=== PATIENT | female | born 1955 | race Caucasian/White ===

== ENCOUNTER 2016-03-11 07:45 | Day surgery (SDC) | payer OTHER, BC ==
[2016-03-10 14:02] VITALS: BMI 31.1
[2016-03-11 08:09] VITALS: TEMP 97.6
[2016-03-11] MEDS ORDERED: PROPOFOL 20 ML ONE ×3 (08:51)
[2016-03-11 10:42] VITALS: BP 142/77; PULSE 73
--- NOTE | 2016-03-12 12:27 | PATH ---
Surgical Pathology Report Patient Name: CYN GUTIERREZ [facility] Rec. #: [id number] /Age/Gender: 1955 (Age: 61) / F Account: [id number] Location: [facility]-ENDOSCOPY Taken: 03/11/2016 Received: 03/11/2016 Reported: 03/12/2016 Physicians: Mark Sosa D.O. Specimen(s) Received A: BX RIGHT COLON B: BX TRANSVERSE COLON C: BX DESCENDING COLON D: BX SIGMOID COLON E: BX RECTAL POLYP Clinical History Diarrhea Colon polyps Final Diagnosis A. COLON, RIGHT, BIOPSY: COLONIC MUCOSA WITH REACTIVE LYMPHOID AGGREGATE. NO EVIDENCE OF ACTIVE INFLAMMATION, SIGINIFICANT ARCHITECTURAL DISTORTION, GRANULOMATA OR DYSPLASIA; NO EVIDENCE OF MICROSCOPIC COLITIS. B. COLON, TRANSVERSE, BIOPSY: COLONIC MUCOSA WITH REACTIVE LYMPHOID AGGREGATE. NO EVIDENCE OF ACTIVE INFLAMMATION, SIGINIFICANT ARCHITECTURAL DISTORTION, GRANULOMATA OR DYSPLASIA; NO EVIDENCE OF MICROSCOPIC COLITIS. C. COLON, DESCENDING, BIOPSY: COLONIC MUCOSA WITH REACTIVE LYMPHOID AGGREGATE. NO EVIDENCE OF ACTIVE INFLAMMATION, SIGINIFICANT ARCHITECTURAL DISTORTION, GRANULOMATA OR DYSPLASIA; NO EVIDENCE OF MICROSCOPIC COLITIS. D. COLON, SIGMOID, BIOPSY: COLONIC MUCOSA WITH REACTIVE LYMPHOID AGGREGATE. NO EVIDENCE OF ACTIVE INFLAMMATION, SIGINIFICANT ARCHITECTURAL DISTORTION, GRANULOMATA OR DYSPLASIA; NO EVIDENCE OF MICROSCOPIC COLITIS. E. RECTUM, POLYP, BIOPSY: FRAGMENTS OF HYPERPLASTIC POLYP. Electronically Signed Rodger Irwin M.D. Gross Description A. Received in formalin, labeled "biopsy right colon microscopic colitis" are 3 ortega, irregular portions of soft tissue averaging 0.2 cm in greatest dimension. The specimens are submitted in toto in one cassette. B. Received in formalin, labeled "biopsy transverse colon microscopic colitis" are 3 ortega, irregular portions of soft tissue averaging 0.3 cm in greatest dimension. The specimens are submitted in toto in one cassette. C. Received in formalin, labeled "biopsy descending colon microscopic colitis" are 3 ortega, irregular portions of soft tissue ranging from 0.2-0.5 cm in greatest dimension. The specimens are submitted in toto in one cassette. D. Received in formalin, labeled "biopsy sigmoid colon microscopic colitis" are 2 ortega, irregular portions of soft tissue averaging 0.5 cm in greatest dimension. The specimens are submitted in toto in one cassette. E. Received in formalin, labeled "biopsy rectal polyp" are 3 ortega, irregular portions of soft tissue ranging from 0.2-0.4 cm in greatest dimension. The specimens are submitted in toto in one cassette. 03/11/201603/11/2016
== END 2016-03-11 10:35 | disposition home or self-care (01) ==
LOC: JASU-ENDO 07:45
PROVIDERS: ATTEND Internal Medicine Gastroenterology
PROC: 0DBE8ZX Excision of Large Intestine, Via Natural or Artificial Opening Endoscopic, Diagnostic (ICD-10-PCS; 2016-03-11)
PROC: 0DBP8ZX Excision of Rectum, Via Natural or Artificial Opening Endoscopic, Diagnostic (ICD-10-PCS; principal; 2016-03-11 09:00)
DX: K62.1 Rectal polyp (principal); K64.8 Other hemorrhoids; R19.7 Diarrhea, unspecified
CPT/HCPCS: 88305-TC

== ENCOUNTER 2016-04-08 07:31 | Day surgery (SDC) | payer OTHER, BC ==
[2016-04-07 13:21] VITALS: BMI 30.4
[2016-04-08] MEDS ORDERED: PROPOFOL 20 ML ONE ×3 (09:19)
[2016-04-08] MEDS ORDERED: LIDOCAINE HCL/PF 1% SDV 5ML VIAL ONE (09:19)
[2016-04-08 09:20] VITALS: TEMP 97.7
[2016-04-08 10:26] VITALS: BP 123/72; PULSE 60
[2016-04-08 10:33] LABS: ALBUMIN 3.5 g/dl (3.4-5.0); ALK PHOS 74 U/L (45-117); BILIRUBIN,TOTAL 0.2 mg/dL (0.2-1.0); SGOT/AST 24 U/L (15-37); SGPT/ALT 40 U/L (12-78); TOT PROT 6.2 g/dl (6.4-8.2)
[2016-04-08 10:46] LABS: BILIRUBIN,DIRECT < 0.1 mg/dL (0.0-0.2)
[2016-04-09 06:06] LABS: SERUM IRON 65 ug/dL (27-159); TOTAL IRON BINDING CAPACITY 257 ug/dL (250-450); UIBC 192 ug/dL (131-425)
--- NOTE | 2016-04-09 13:52 | PATH ---
Surgical Pathology Report Patient Name: CYN GUTIERREZ [facility] Rec. #: [id number] /Age/Gender: 1955 (Age: 61) / F Account: [id number] Location: U-ENDOSCOPY Taken: 04/08/2016 Received: 04/08/2016 Reported: 04/09/2016 Physicians: Mark Sosa D.O. Specimen(s) Received A: BX BODY & ANTRUM B: BX GE JUNCTION Clinical History GERD Gastritis, retained food Final Diagnosis A. STOMACH, BODY AND ANTRUM, BIOPSY: GASTRIC ANTRAL AND OXYNTIC MUCOSA WITH MODERATE CHRONIC GASTRITIS. IMMUNOSTAIN FOR H. PYLORI IS NEGATIVE FOR ORGANISMS. B. GE JUNCTION, BIOPSY: SQUAMOCOLUMNAR JUNCTIONAL MUCOSA WITH CHRONIC INFLAMMATION, REFLUX TYPE CHANGES AND FOCAL SURFACE EROSION AND HYPERPLASTIC CHANGE. NO INTESTINAL METAPLASIA (PETERS'S ESOPHAGUS) OR DYSPLASIA IDENTIFIED. Electronically Signed Rodger Irwin M.D. Gross Description A. Received in formalin, labeled "biopsy body and antrum" are 2 ortega, irregular portions of soft tissue measuring 0.1 and 0.5 cm in greatest dimension. The specimens are submitted in toto in one cassette. B. Received in formalin, labeled "biopsy GE junction" are 3 ortega, irregular portions of soft tissue ranging from 0.1-0.4 cm in greatest dimension. The specimens are submitted in toto in one cassette. 04/08/201604/08/2016
[2016-04-10 00:08] LABS: HEP B SURFACE AB Non Reactive (.)
[2016-04-11 10:15] LABS: ALPHA 2 MACROGLOBULINS,QN 155 mg/dL (110-276); BILIRUBIN TOTAL 0.1 mg/dL (0.0-1.2); GGT= 46 IU/L (0-60); GLUCOSE SERUM 104 mg/dL (65-99); HAPTOGLOBIN= 82 mg/dL (34-200); HEIGHT 66 Inches (.); TRIGLYCERIDES= 208 mg/dL (0-149)
== END 2016-04-08 10:20 | disposition home or self-care (01) ==
LOC: JASU-ENDO 07:31
PROVIDERS: ATTEND Internal Medicine Gastroenterology
PROC: 0DB68ZX Excision of Stomach, Via Natural or Artificial Opening Endoscopic, Diagnostic (ICD-10-PCS; principal; 2016-04-08 09:00)
DX: K21.9 Gastro-esophageal reflux disease without esophagitis (principal); K29.50 Unspecified chronic gastritis without bleeding
CPT/HCPCS: 36415; 80076; 82103; 82104; 82172; 82247; 82390; 82465; 82728; 82947; 82977; 83010; 83540; 83550; 83883; 84450; 84460; 84478; 86704; 86706; 86708; 87340; 88305-TC; 88342-TC

== ENCOUNTER 2018-07-20 19:28 | Emergency (ER) | payer OTHER, BC ==
[2018-07-20 19:39] VITALS: BP 128/62; PULSE 71; TEMP 98.1; BMI 27.2
[2018-07-20] MEDS ORDERED: FAMOTIDINE 20 MG/50 ML IVPB 20 MG/50 ML MG IVPB ONE ×2 (19:46→19:51)
--- NOTE | 2018-07-21 06:06 | PDOC ---
Documentation entered by Silvana Houston SCRIBE, acting as scribe for Nakia Moya MD. Nakia Moya MD: This documentation has been prepared by the Rosemarie ziegler Mackenzie, SCRIBE, under my direction and personally reviewed by me in its entirety. I confirm that the documentation accurately reflects all work , treatment, procedures, and medical decision making performed by me. History of Present Illness - General Chief Complaint: Allergic Reaction Stated Complaint: SWELLING AROUND BOTH EYES Time Seen by Provider: 07/20/18 19:29 History Source: Patient, Spouse Exam Limitations: No Limitations - History of Present Illness Initial Comments: 07/20/18 20:48 The patient is a 63 year old female accompanied with her , with a significant past medical history of IBS, Dyan Ramirez, acid reflux, and hyperlipidemia who presents to the emergency department for evaluation of facial edema. Patient reports waking up with facial and periorbital edema associated with redness and itchiness to face, eyes, neck, and upper chest. She denies feeling any symptoms last night. Patient reports taking liquid benadryl this morning at 11am and 12pm with mild alleviation to her symptoms. Patient reports going to an Urgent Care this morning where she received a nebulizer treatment, and was prompted to visit the emergency department for further evaluation. Patient states she had no shortness of breath this morning. She denies use of new detergent, foods, over the counter medication, new medication , or recent travel. Patient states she is unsure of how her symptoms started. Per at bedside, patient was removing weeds in yard last night, but notes there was no poison jomar present. The patient denies tongue swelling, difficulty swallowing, itchiness in throat, shortness of breath, chest pain, headache and dizziness. Denies fever, chills, nausea, vomit, diarrhea and constipation. Denies dysuria, frequency, urgency and hematuria. Allergies: Penicillins, Steroids. Past surgical history: Cholecystectomy, laminectomy Social history: No reported alcohol or drug use. PCP: Lito Corey Past History - Past Medical History Allergies/Adverse Reactions: Allergies Allergy/AdvReac Type Severity Reaction Status Date / Time Penicillins Allergy Mild Verified 07/20/18 19:30 STEROIDS AdvReac Uncoded 07/20/18 19:30 Home Medications: Ambulatory Orders Alprazolam [Xanax] 0.25 mg PO PRN 07/20/18 Calamine/Zinc Oxide [Calamine Lotion] 5 ml TP TID #177 ml 07/20/18 Clonazepam [Klonopin] 2 mg PO HS 07/20/18 Lubiprostone [Amitiza] 16 mcg PO DAILY 07/20/18 Trazodone HCl 300 mg PO HS 07/20/18 Anemia: No COPD: No GI Disorders: Yes (acid reflux, IBS) Hypercholesterolemia: Yes Liver Disease: (FATTY LIVER) Psychiatric Problems: Yes (anxiety, depression, panic attacks) - Surgical History Abdominal Surgery: Yes ("TUMMY TUC") Cholecystectomy: Yes Neurologic Surgery: Yes (laminectomy x 2) Orthopedic Surgery: Yes (CERVICAL, SPINAL SX; PLATES AND SCREWS) - Immunization History Td Vaccination: Yes - Suicide/Smoking/Psychosocial Hx Smoking Status: No Smoking History: Never smoked Have you smoked in the past 12 months: No Number of Cigarettes Smoked Daily: 0 Information on smoking cessation initiated: No Hx Alcohol Use: No Drug/Substance Use Hx: No Substance Use Type: None Hx Substance Use Treatment: No Review of Systems - Review of Systems Able to Perform ROS?: Yes Comments:: 07/20/18 20:49 GENERAL/CONSTITUTIONAL: No fever or chills. No weakness. HEAD, EYES, EARS, NOSE AND THROAT: No change in vision. No ear pain or discharge. No sore throat. CARDIOVASCULAR: No chest pain or shortness of breath. RESPIRATORY: No cough, wheezing, or hemoptysis. GASTROINTESTINAL: No nausea, vomiting, diarrhea or constipation. GENITOURINARY: No dysuria, frequency, or change in urination. MUSCULOSKELETAL: No joint or muscle swelling or pain. No neck or back pain. SKIN: (+)periorbital swelling. (+)rash to face, neck, and upper chest. NEUROLOGIC: No headache, vertigo, loss of consciousness, or change in strength/ sensation. ENDOCRINE: No increased thirst. No abnormal weight change. HEMATOLOGIC/LYMPHATIC: No anemia, easy bleeding, or history of blood clots. ALLERGIC/IMMUNOLOGIC: No hives or skin allergy. *Physical Exam - Vital Signs Last Vital Signs Temp Pulse Resp BP Pulse Ox 98.1 F 71 16 128/62 100 07/20/18 19:34 07/20/18 19:34 07/20/18 19:34 07/20/18 19:34 07/20/18 19:34 - Physical Exam Comments: 07/20/18 20:49 GENERAL: Awake, alert, and fully oriented, in no acute distress HEENT: (+)marked bilateral periorbital edema with mild erythema on the skin of the upper face, bilateral cheeks, anterior neck, and proximal anterior chest. No lip, tongue, or uvular edema. No signs of trauma. PERRLA, EOMI, sclera anicteric, conjunctiva clear. Auricles normal inspection, hearing grossly normal , nares patent, oropharynx clear without exudates. Moist mucosa. NECK: No stridor. Normal ROM, supple, no JVD, or masses BACK: Well healed 4cm midline incision in lumbar region. Otherwise unremarkable. LUNGS: Breath sounds equal, clear to auscultation bilaterally. No wheezes, and no crackles HEART: Regular rate and rhythm, normal S1 and S2, no murmurs, rubs or gallops EXTREMITIES: Normal range of motion, no edema. No clubbing or cyanosis. No cords, erythema, or tenderness NEUROLOGICAL: Cranial nerves II through XII grossly intact. Normal speech, normal gait SKIN: Skin: No papular or vesicular rash noted anywhere on the body. Warm, Dry, normal turgor. ED Treatment Course - Medications Given in the ED: ED Medications Discontinued Medications Generic Name Dose Route Start Last Admin Trade Name Freq PRN Reason Stop Dose Admin Diphenhydramine HCl 50 mg 07/20/18 19:46 07/20/18 19:50 Benadryl Injection - IVPB 07/20/18 19:47 50 mg ONCE ONE Administration Famotidine/Sodium Chloride 20 mg in 50 mls @ 100 mls/hr 07/20/18 19:46 19:50 Pepcid 20 Mg Premixed Ivpb - IVPB 07/20/18 20:15 100 mls/hr ONCE ONE Administration Medical Decision Making - Medical Decision Making As noted above, this 63-year-old woman presents with a one-day history of bilateral periorbital edema; she presented to urgent care earlier today and reports here because of persistent swelling around her eyes. She states that she has itching and burning in the swollen area of her upper face and also in the anterior neck region where she has some erythema. She strongly denies any difficulty swallowing or breathing; she has had no lip/tongue edema and has no sensation of foreign body in her throat. No history of rash (either erythema/ maculopapular/vesicular) anywhere else on her body. Of note, the patient was weeding her garden the day prior to onset of current periorbital edema/erythema The patient states that she has had an anaphylactic reaction to poison jomar in the past. She also has severe side effects to prescribed steroids: She becomes extremely depressed and angry, almost to the point of violence. She states she attempted to commit suicide last time she was prescribed prednisone. Exam as noted with marked bilateral periorbital edema with faint erythema of swollen areas. No evidence of fluctuance or abscess in any area. The actual orbit is normal without conjunctival erythema/corneal edema or other ophthalmologic abnormality. Review of the patient's medical record reveals similar right periorbital edema after gardening in May,. At that time, patient was treated with antihistamines only , with apparent resolution of symptoms. Because of lack of signs of upper airway/neck/lung inflammation or edema and no other rash noted, systemic ALLERGIC reaction or anaphylaxis is highly unlikely here. However, because she has facial edema and did not take any diphenhydramine for 6-7 hours prior to presentation, she was given 50 mg Benadryl IV as well as 20 mg of Pepcid IV. Patient was observed for an hour after administration of the above medications. She had mild decrease in the edema around her eyes with no development of tongue/lip edema/stridor/wheezing. It was explained to the patient that presentation is more consistent with localized contact dermatitis, either ALLERGIC or irritant. Since she was weeding in her garden the day prior to presentation, contact with some plant or chemical allergen may be responsible. In any case, steroids cannot be used. Therefore, antihistamines (including H2 stuart) and local agents (calamine lotion/cool compresses) will be advised until she can be seen by program instructor for possible use of immunomodulators such as tacrolimus. Patient's has been seen by Dr. Clark of [facility] dermatology staff. Dr. Patricia Andrew's referral information will also be given to the patient. The patient should call tomorrow a.m. for follow-up by one of these program instructor. Meanwhile, if the patient has development of any lower facial edema, symptoms of difficulty breathing or swallowing, she should return to the ER immediately *DC/Admit/Observation/Transfer Diagnosis at time of Disposition: Contact dermatitis of eyelids of both eyes - Discharge Dispostion Disposition: HOME Condition at time of disposition: Stable - Prescriptions Prescriptions: Calamine/Zinc Oxide [Calamine Lotion] 5 ml TP TID #177 ml - Referrals Referrals: Patricia Andrew [Staff Physician] - - Patient Instructions Printed Discharge Instructions: Contact Dermatitis Additional Instructions: Elevate head on extra pillows at night; cool compresses to upper face Continue Benadryl as needed for itching/Zantac daily as discussed calamine lotion to rash 3 times daily Follow-up with your program instructor (Dr. Clark); call office in the morning If Dr. Clark is not available, follow-up with Dr. Andrew for dermatology evaluation - Post Discharge Activity
== END 2018-07-20 20:49 | disposition home or self-care (01) ==
LOC: FER 19:28
PROC: 3E033GC Introduction of Other Therapeutic Substance into Peripheral Vein, Percutaneous Approach (ICD-10-PCS; principal; 2018-07-20)
DX: K21.9 Gastro-esophageal reflux disease without esophagitis (principal); F41.8 Other specified anxiety disorders; F99 Mental disorder, not otherwise specified; E78.00 Pure hypercholesterolemia, unspecified; K76.0 Fatty (change of) liver, not elsewhere classified
CPT/HCPCS: 96365; 96375; 99281-25

== ENCOUNTER 2018-12-14 09:11 | Day surgery (SDC) | payer OTHER, BC ==
[2018-12-10 16:14] VITALS: BMI 26.4
[2018-12-14] MEDS ORDERED: PROPOFOL 20 ML ONE ×4 (11:14)
[2018-12-14] MEDS ORDERED: MIDAZOLAM HCL 2 MG/2 ML SINGLE DOSE VIAL ONE (11:15)
--- NOTE | 2018-12-14 11:55 | OP ---
Operative Note - Note: Operative Date: 12/14/18 Pre-Operative Diagnosis: Left renal calculus Operation: Left Lithotripsy Findings: Left 8 mm renal stone Post-Operative Diagnosis: Same as Pre-op Surgeon: Xander Lee MD. Anesthesia: General Specimens Removed: None
[2018-12-14] MEDS ORDERED: ELECTROLYTE-148 SOLN 1,000 ML IV SCH (12:00)
--- NOTE | 2018-12-14 13:00 | OP ---
DATE OF OPERATION: 12/14/2018 PREOPERATIVE DIAGNOSIS: Left renal calculus. POSTOPERATIVE DIAGNOSIS: Left renal calculus. PROCEDURE: Left lithotripsy. HISTORY: This is a very pleasant 63-year-old female who had actually bilateral flank pain and was found to have a left renal calculus. This was confirmed by prior imaging and by sonography as well as x-ray. Discussed treatment options. The patient elected to undergo the above-stated procedure. Risks, benefits of treatment, alternative treatment discussed in detail. All questions were answered. BRIEF OPERATIVE NOTE: The patient was brought into the operating suite, placed in supine position. A time-out was performed after identifying an 8-mm stone in the left kidney. Intravenous antibiotics were given. The patient was given sedation, and approximately 2500 shocks were delivered in electromagnetic fashion. Patient tolerated the procedure well and was brought to recovery room in stable and satisfactory condition. RICHMOND FERNANDEZ M.D. [id number]
[2018-12-14 13:17] VITALS: BP 124/60; PULSE 59; TEMP 97.5
== END 2018-12-14 13:12 | disposition home or self-care (01) ==
LOC: JASU-SURG 09:11
PROVIDERS: ATTEND Urology
PROC: 0TF4XZZ Fragmentation in Left Kidney Pelvis, External Approach (ICD-10-PCS; principal; 2018-12-14 11:00)
DX: N20.0 Calculus of kidney (principal)

== ENCOUNTER 2019-12-13 04:20 | Day surgery (SDC) | payer OTHER, BC ==
[2019-12-12 09:03] VITALS: BMI 26.6
[2019-12-13 08:43] VITALS: TEMP 97.5
[2019-12-13] MEDS ORDERED: ELECTROLYTE-148 SOLN 1,000 ML IV SCH (09:15)
[2019-12-13 10:09] VITALS: BP 110/70; PULSE 64
== END 2019-12-13 09:50 | disposition home or self-care (01) ==
LOC: JASU-SURG 04:20
PROVIDERS: ATTEND Urology
PROC: 0TF4XZZ Fragmentation in Left Kidney Pelvis, External Approach (ICD-10-PCS; principal; 2019-12-13 07:30)
DX: N20.0 Calculus of kidney (principal)

== ENCOUNTER 2020-03-13 05:23 | Day surgery (SDC) | payer OTHER, BC ==
[2020-03-08 15:58] VITALS: BMI 26.6
[2020-03-13] MEDS ORDERED: MIDAZOLAM HCL 2 MG/2 ML SINGLE DOSE VIAL ONE (11:58)
[2020-03-13] MEDS ORDERED: PROPOFOL 20 ML ONE (11:58)
[2020-03-13] MEDS ORDERED: SUCCINYLCHOLINE CHLORIDE 200 MG/10 ML SYRINGE ONE (11:58)
[2020-03-13] MEDS ORDERED: LIDOCAINE HCL/PF 2% SDV 5ML VIAL ONE (11:59)
[2020-03-13] MEDS ORDERED: GENTAMICIN SO4 80 MG/2 ML VIAL IVPB ONE (12:20)
[2020-03-13] MEDS ORDERED: GENTAMICIN SO4 80 MG/2 ML VIAL ONE (12:24)
[2020-03-13] MEDS ORDERED: oxyCODONE HCL 5 MG TABLET PO PRN (13:49)
[2020-03-13] MEDS ORDERED: ONDANSETRON 4 MG/2 ML VIAL IVPUSH PRN (13:49)
[2020-03-13] MEDS ORDERED: LACTATED RINGERS SOLUTION 1,000 ML IV SCH (14:00)
[2020-03-13] MEDS ORDERED: oxyCODONE HCL 5 MG TABLET ONE (15:24)
[2020-03-13] MEDS ORDERED: oxyCODONE HCL 5 MG TABLET PO ONE (15:25)
[2020-03-13] MEDS ORDERED: ONDANSETRON 4 MG/2 ML VIAL ONE (15:30)
[2020-03-13] MEDS ORDERED: ONDANSETRON 4 MG/2 ML VIAL IVPB ONE (15:39)
[2020-03-13 16:21] VITALS: BP 160/80; PULSE 70; TEMP 98.4
== END 2020-03-13 16:30 | disposition home or self-care (01) ==
LOC: JASU-SURG 05:23
PROVIDERS: ATTEND Urology
PROC: 0TF48ZZ Fragmentation in Left Kidney Pelvis, Via Natural or Artificial Opening Endoscopic (ICD-10-PCS; principal; 2020-03-13 11:00)
PROC: 0T778DZ Dilation of Left Ureter with Intraluminal Device, Via Natural or Artificial Opening Endoscopic (ICD-10-PCS; 2020-03-13 11:00)
DX: N20.0 Calculus of kidney (principal)
CPT/HCPCS: 76000-TC-FY; 94760

== ENCOUNTER 2020-04-09 04:15 | Day surgery (SDC) | payer OTHER, BC ==
[2020-04-05 16:35] VITALS: BMI 25.8
[2020-04-09] MEDS ORDERED: LIDOCAINE HCL/PF 2% SDV 5ML VIAL ONE (07:58)
[2020-04-09] MEDS ORDERED: PROPOFOL 20 ML ONE ×2 (07:58)
[2020-04-09] MEDS ORDERED: BUPIVACAINE HCL/PF 0.25% (2.5MG/ML) 10 ML VIAL IJ ONE (08:06)
[2020-04-09] MEDS ORDERED: methylPREDNISolone ACET (DEPO) 80 MG/1 ML VIAL IJ ONE (08:06)
[2020-04-09] MEDS ORDERED: LIDOCAINE HCL 1%, 10 MG/ML (20ML VIAL) NR ONE (08:06)
[2020-04-09 08:25] VITALS: TEMP 98.2
[2020-04-09 10:17] VITALS: BP 147/81; PULSE 88
== END 2020-04-09 10:17 | disposition home or self-care (01) ==
LOC: JASU-SURG 04:15
PROVIDERS: ATTEND Neurological Surgery
PROC: 3E0R33Z Introduction of Anti-inflammatory into Spinal Canal, Percutaneous Approach (ICD-10-PCS; 2020-04-09)
PROC: B01BYZZ Fluoroscopy of Spinal Cord using Other Contrast (ICD-10-PCS; 2020-04-09)
PROC: 3E0R3BZ Introduction of Anesthetic Agent into Spinal Canal, Percutaneous Approach (ICD-10-PCS; principal; 2020-04-09 07:30)
DX: M54.16 Radiculopathy, lumbar region (principal); M48.061 Spinal stenosis, lumbar region without neurogenic claudication
CPT/HCPCS: 76000-TC-FY

== ENCOUNTER 2020-04-17 08:53 | Day surgery (SDC) | payer OTHER, BC ==
[2020-04-05 11:59] VITALS: BMI 25.8
[2020-04-17 09:32] VITALS: TEMP 97.9
[2020-04-17 11:56] VITALS: BP 130/77; PULSE 61
== END 2020-04-17 12:00 | disposition home or self-care (01) ==
LOC: FASU-ENDO 08:53
PROVIDERS: ATTEND Internal Medicine Gastroenterology
PROC: 0DB78ZX Excision of Stomach, Pylorus, Via Natural or Artificial Opening Endoscopic, Diagnostic (ICD-10-PCS; 2020-04-17)
PROC: 0DB48ZX Excision of Esophagogastric Junction, Via Natural or Artificial Opening Endoscopic, Diagnostic (ICD-10-PCS; 2020-04-17)
PROC: 0DB98ZX Excision of Duodenum, Via Natural or Artificial Opening Endoscopic, Diagnostic (ICD-10-PCS; principal; 2020-04-17 11:04)
DX: K29.50 Unspecified chronic gastritis without bleeding (principal); K31.89 Other diseases of stomach and duodenum; Z88.0 Allergy status to penicillin; Z88.8 Allergy status to other drugs, medicaments and biological substances; Z91.048 Other nonmedicinal substance allergy status

== ENCOUNTER 2020-04-25 05:21 | Day surgery (SDC) | payer OTHER, BC ==
[2020-04-23 18:51] VITALS: BMI 25.8
[2020-04-25 07:11] VITALS: TEMP 97.7
[2020-04-25] MEDS ORDERED: methylPREDNISolone ACET (DEPO) 80 MG/1 ML VIAL ONE (07:22)
[2020-04-25] MEDS ORDERED: BUPIVACAINE HCL/PF 0.25% (2.5MG/ML) 10 ML VIAL ONE (07:22)
[2020-04-25] MEDS ORDERED: PROPOFOL 20 ML ONE (08:25)
[2020-04-25] MEDS ORDERED: LIDOCAINE HCL/PF 2% SDV 5ML VIAL ONE (08:25)
[2020-04-25] MEDS ORDERED: methylPREDNISolone ACET (DEPO) 80 MG/1 ML VIAL IJ ONE (08:30)
[2020-04-25] MEDS ORDERED: LIDOCAINE HCL 1%, 10 MG/ML (50 mL VIAL) INF ONE (08:30)
[2020-04-25] MEDS ORDERED: BUPIVACAINE HCL/PF 0.25% (2.5MG/ML) 10 ML VIAL IJ ONE (08:30)
[2020-04-25 09:32] VITALS: BP 120/71; PULSE 57
== END 2020-04-25 10:15 | disposition home or self-care (01) ==
LOC: JASU-SURG 05:21
PROVIDERS: ATTEND Neurological Surgery
PROC: 3E0R33Z Introduction of Anti-inflammatory into Spinal Canal, Percutaneous Approach (ICD-10-PCS; 2020-04-25)
PROC: 3E0R3BZ Introduction of Anesthetic Agent into Spinal Canal, Percutaneous Approach (ICD-10-PCS; principal; 2020-04-25 08:00)
DX: M51.16 Intervertebral disc disorders with radiculopathy, lumbar region (principal); M54.5 Low back pain
CPT/HCPCS: 76000-TC-FY

== ENCOUNTER 2020-05-07 18:11 | Emergency (ER) | payer OTHER, BC ==
[2020-05-07 18:31] VITALS: BP 132/79; PULSE 54; TEMP 98; BMI 25.8
[2020-05-07 19:40] LABS: BASO % 2.3 % (0-2.0); EOS % 1.2 % (0-4.5); HEMOGLOBIN 13.5 GM/dl (10.7-15.3); LYMPH % 31.5 % (8-40); MCH 31.5 pg (25.7-33.7); MCHC 33.8 g/dl (32.0-36.0); MEAN CELL VOLUME 93.4 fl (80-96); MONO % 6.6 % (3.8-10.2); NEUT % 58.4 % (42.8-82.8); PLATELET COUNT 206 K/MM3 (134-434); RBC 4.28 M/mm3 (3.60-5.2); RDW 12.3 % (11.6-15.6)
[2020-05-07 19:55] LABS: ALBUMIN 4.3 g/dl (3.4-5.0); ALK PHOS 56 U/L (45-117); ANION GAP 8 MMOL/L (8-16); BILIRUBIN,TOTAL 1.3 mg/dl (0.2-1); CALCIUM 9.4 mg/dl (8.5-10); CHLORIDE 105 mmol/L (98-107); CO2 24 mmol/L (21-32); CREATININE 1.1 mg/dl (0.55-1.3); GLUCOSE,RANDOM 84 mg/dl (74-106); POTASSIUM 5.2 mmol/L (3.5-5.1); SGOT/AST 32 U/L (15-37); SGPT/ALT 15 U/L (13-61); SODIUM 137 mmol/L (136-145); TOT PROT 7.4 g/dl (6.4-8.2)
[2020-05-07] MEDS ORDERED: ASPIRIN 81 MG CHEWABLE TABLETS PO ONE (20:54)
== END 2020-05-07 21:10 | disposition left against medical advice (07) ==
LOC: FER 18:11
DX: I24.9 Acute ischemic heart disease, unspecified (principal)
CPT/HCPCS: 36415; 71045-TC-FY; 80053; 82550; 84132; 84484; 85025; 99285-25; C9803; U0003; U0005

== ENCOUNTER 2020-06-19 11:02 | Day surgery (SDC) | payer OTHER, BC ==
[2020-06-18 11:31] VITALS: BMI 26.6
[2020-06-19 12:49] VITALS: TEMP 98.2
[2020-06-19 13:05] VITALS: BP 118/64; PULSE 58
== END 2020-06-19 13:06 | disposition home or self-care (01) ==
LOC: FASU-ENDO 11:02
PROVIDERS: ATTEND Internal Medicine Gastroenterology
PROC: 0DBL8ZX Excision of Transverse Colon, Via Natural or Artificial Opening Endoscopic, Diagnostic (ICD-10-PCS; 2020-06-19)
PROC: 0DBP8ZX Excision of Rectum, Via Natural or Artificial Opening Endoscopic, Diagnostic (ICD-10-PCS; 2020-06-19)
PROC: 0DBM8ZX Excision of Descending Colon, Via Natural or Artificial Opening Endoscopic, Diagnostic (ICD-10-PCS; 2020-06-19)
PROC: 0DBK8ZX Excision of Ascending Colon, Via Natural or Artificial Opening Endoscopic, Diagnostic (ICD-10-PCS; principal; 2020-06-19 12:16)
DX: Z12.11 Encounter for screening for malignant neoplasm of colon (principal); K63.89 Other specified diseases of intestine; K64.1 Second degree hemorrhoids; K64.8 Other hemorrhoids; R19.7 Diarrhea, unspecified
CPT/HCPCS: 88305-TC

== ENCOUNTER 2020-11-05 13:24 | Emergency (ER) | payer OTHER, BC ==
[2020-11-05 13:31] VITALS: BP 134/64; PULSE 54; TEMP 98.8; BMI 26.6
[2020-11-05] MEDS ORDERED: hydrOXYzine PAMOATE 25 MG CAPSULE (FP) PO ONE ×2 (14:00→14:05)
[2020-11-05] MEDS ORDERED: DEXAMETHASONE SOD PHOSPHATE 10 MG/1 ML VIAL IVPUSH ONE (14:00)
[2020-11-05] MEDS ORDERED: FAMOTIDINE 20 MG/50 ML IVPB 20 MG/50 ML MG IVPB ONE ×2 (14:00→14:06)
[2020-11-05] MEDS ORDERED: DEXAMETHASONE SOD PHOSPHATE 10 MG/1 ML VIAL ONE (14:06)
== END 2020-11-05 15:20 | disposition home or self-care (01) ==
LOC: FER 13:24
PROC: 3E033GC Introduction of Other Therapeutic Substance into Peripheral Vein, Percutaneous Approach (ICD-10-PCS; principal; 2020-11-05)
DX: T78.40XA Allergy, unspecified, initial encounter (principal)
CPT/HCPCS: 96365; 96375; 99284-25; J1100

== ENCOUNTER 2022-01-08 04:30 | Day surgery (SDC) | payer OTHER, BC ==
[2022-01-07 16:42] VITALS: BMI 25.6
[2022-01-08] MEDS ORDERED: BUPIVACAINE HCL/PF 0.25% (2.5MG/ML) 10 ML VIAL ONE (07:12)
[2022-01-08] MEDS ORDERED: methylPREDNISolone ACET (DEPO) 80 MG/1 ML VIAL ONE (07:13)
[2022-01-08] MEDS ORDERED: BUPIVACAINE HCL/PF 0.5% (5MG/ML) 10 ML VIAL ONE (07:14)
[2022-01-08] MEDS ORDERED: LIDOCAINE HCL/PF 1% SDV 5ML VIAL ONE (07:14)
[2022-01-08] MEDS ORDERED: PROPOFOL 20 ML ONE (07:21)
[2022-01-08] MEDS ORDERED: MIDAZOLAM HCL 2 MG/2 ML SINGLE DOSE VIAL ONE ×4 (07:22→07:58)
[2022-01-08] MEDS ORDERED: methylPREDNISolone ACET (DEPO) 80 MG/1 ML VIAL IM ONE (08:00)
[2022-01-08] MEDS ORDERED: LIDOCAINE HCL 1% PRESERVATIVE FREE - 30ML VIAL IJ ONE (08:00)
[2022-01-08] MEDS ORDERED: BUPIVACAINE HCL/PF 0.5% (5 MG/ML) 30 ML VIAL IJ ONE (08:00)
[2022-01-08] MEDS ORDERED: ONDANSETRON 4 MG/2 ML VIAL ONE (08:06)
[2022-01-08] MEDS ORDERED: ONDANSETRON 4 MG/2 ML VIAL IVPUSH PRN (08:18)
[2022-01-08] MEDS ORDERED: LACTATED RINGERS SOLUTION 1,000 ML IV SCH (08:30)
[2022-01-08 09:39] VITALS: RESP 18; TEMP 97.8
[2022-01-08 09:48] VITALS: BP 120/54; PULSE 64
== END 2022-01-08 10:10 | disposition home or self-care (01) ==
LOC: JASU-SURG 04:30
PROVIDERS: ATTEND Neurological Surgery
PROC: 3E0R33Z Introduction of Anti-inflammatory into Spinal Canal, Percutaneous Approach (ICD-10-PCS; 2022-01-08)
PROC: 3E0R3BZ Introduction of Anesthetic Agent into Spinal Canal, Percutaneous Approach (ICD-10-PCS; principal; 2022-01-08 07:30)
DX: M54.16 Radiculopathy, lumbar region (principal)
CPT/HCPCS: 76000-TC-FY; 94760